=== PATIENT | female | born 1955 | race Asian ===

== ENCOUNTER 2018-07-17 09:52 | Emergency (ER) | payer OTHER ==
[~2018-07-17] VITALS: Ht 162.6 cm; Wt 68.0 kg
[2018-07-17 09:58] VITALS: BP 152/70
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
[2018-07-17] MEDS ORDERED: Gastrograffin 30ml ORAL PRN (10:15)
[2018-07-17] MEDS ORDERED: Morphine Sulfate 4mg/ml Inj (IV USE ONLY) IVP ONE ×2 (10:15→13:30)
--- NOTE | 2018-07-17 10:30 | NUR ---
ED Nurse Note: Collected blood specimen then sent.
--- NOTE | 2018-07-17 10:32 | NUR ---
ED Nurse Note: records technician at the bed side for series of xrays.
[2018-07-17 10:38] LABS: BASOPHILS % (AUTO) 0.8 % (0.0-2.0); EOSINOPHILS % (AUTO) 1.2 % (0.0-3.0); HEMATOCRIT 38.6 % (37.0-47.0); HEMOGLOBIN 12.9 G/DL (12.0-16.0); LYMPHOCYTES % (AUTO) 22.7 % (20.0-45.0); MEAN CORPUSCULAR VOLUME 88 FL (80-99); MONOCYTES % (AUTO) 4.9 % (1.0-10.0); NEUTROPHILS % (AUTO) 70.5 % (45.0-75.0); PLATELET COUNT 176 K/UL (150-450); RED BLOOD COUNT 4.37 M/UL (4.20-5.40); RED CELL DISTRIBUTION WIDTH 12.5 % (11.6-14.8); WHITE BLOOD COUNT 6.3 K/UL (4.8-10.8)
[2018-07-17 10:54] LABS: ANION GAP 11 mmol/L (5-15); BLOOD UREA NITROGEN 21 mg/dL (7-18); CALCIUM 9.6 MG/DL (8.5-10.1); CARBON DIOXIDE 24 MMOL/L (21-32); CHLORIDE 107 MMOL/L (98-107); CREATININE 0.6 MG/DL (0.55-1.30); INR 1.1 (0.9-1.1); POTASSIUM 3.6 MMOL/L (3.5-5.1); SODIUM 142 MMOL/L (136-145)
[2018-07-17 11:00] LABS: ALANINE AMINOTRANSFERASE 41 U/L (12-78); ALBUMIN 3.8 G/DL (3.4-5.0); ALBUMIN/GLOBULIN RATIO 1.1 (1.0-2.7); ALKALINE PHOSPHATASE 117 U/L (46-116); ASPARTATE AMINO TRANSFERASE 33 U/L (15-37); BILIRUBIN,TOTAL 0.7 MG/DL (0.2-1.0)
--- NOTE | 2018-07-17 11:09 | NUR ---
ED Nurse Note: Pt taken to CT via [facility]ardo. VSS.
--- NOTE | 2018-07-17 11:25 | NUR ---
ED Nurse Note: Patient came back from CT via gurney.
--- NOTE | 2018-07-17 11:42 | Diagnostic Imaging Report ---
Indication: Pain Knee pain/trauma 3 views of the right knee were obtained. Findings: No acute fracture, malalignment, or joint effusion are identified. Joint space is relatively well-maintained. Impression: Negative for acute findings.
--- NOTE | 2018-07-17 11:43 | Diagnostic Imaging Report ---
Indication: Left leg pain and trauma Comparison: None Findings: Two views of the left tibia and fibula were obtained. No acute fracture, malalignment, or periosteal reaction are identified. Soft tissues are unremarkable. Impression: No acute injury.
--- NOTE | 2018-07-17 11:44 | Diagnostic Imaging Report ---
Indication: Knee Pain 3 views of the left knee were obtained. Findings: No acute fracture, malalignment, or joint effusion are identified. Joint space is relatively well-maintained. Soft tissue swelling noted. Impression: Negative for acute injury
--- NOTE | 2018-07-17 11:47 | Diagnostic Imaging Report ---
Indication: right leg pain Comparison: None Findings: Two views of the right tibia and fibula were obtained. There is an acute fracture of the medial malleolus. The fracture is intra-articular and the seen on the frontal projection. There is also probable fracture of the lateral malleolus at the inferior most margin. IMPRESSION: Acute bimalleolar fracture
[2018-07-17 12:10] VITALS: BP 148/76
--- NOTE | 2018-07-17 12:15 | Diagnostic Imaging Report ---
Indication: Head trauma. Headache Technique: Contiguous 5 mm thick transaxial imaging of the head obtained in a Siemens Sensation [address] scanner. Soft tissue and bone windows generated. Automatic Exposure Control was utilized. Total Dose length Product (DLP): 1397.[address] Dose Index Volume (CTDIvol): 70.38 mGy Comparison: none Findings: There is mild prominence of the ventricles, basal cisterns, and cerebral sulci consistent with atrophy. Mild, nonspecific, white matter hypoattenuation is noted throughout the brain consistent with chronic small vessel disease. There is no midline shift, edema, acute hemorrhage, mass effect, or abnormal extra-axial fluid collections. Bones and extra osseous soft tissues are unremarkable. Impression: No acute intracranial bleed, mass effect or edema. Mild atrophy of the brain. Nonspecific white matter hypoattenuation probably due to chronic small vessel disease. The CT scanner at [facility] is accredited by the [employer] and the scans are performed using dose optimization techniques as appropriate to a performed exam including Automatic Exposure control.
--- NOTE | 2018-07-17 12:29 | Diagnostic Imaging Report ---
Indication: Neck pain. Technique: Continuous helical imaging of the cervical spine was obtained transaxially from the skull base to the upper thoracic spine. 2-D coronal and sagittal reformatted images were obtained. Automatic Exposure Control was utilized. Total Dose length Product (DLP): 264.[address] Dose Index Volume (CTDIvol): 12 mGy Comparison: None Findings: The left transverse process of C6 is fractured. The anterior aspect of the foramen transversarium shows a transverse lucency probably best demonstrated on transaxial images (). There is also linear lucency along the posterior aspect of the left T6 foramen transversarium at this level. The lateral mass, lamina and vertebral body appear normal at this level. No other fractures are identified. There is no malalignment. Intervertebral disc heights and vertebral body heights are normal. There is no soft tissue swelling appreciated. IMPRESSION: Evidence of an acute nondisplaced fracture of the left transverse process of C6 involving both the anterior and posterior aspects of foramen transversarium. Given the proximity of the left vertebral artery which courses through foramen transversarium, injury to this vessel is not excluded. Critical value communication. Findings were discussed via telephone with Dr. Luz in the emergency department 12:20 PM, 07/17/2018. The CT scanner at [facility] is accredited by the [employer] and the scans are performed using dose optimization techniques as appropriate to a performed exam including Automatic Exposure control.
[2018-07-17] MEDS ORDERED: ceFAZolin 1gm/50ml Premix 50 ML IV ONE (12:30)
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
--- NOTE | 2018-07-17 12:40 | NUR ---
ED Nurse Note: Cleaned pt's laceration on right foot and left knee with saline patted dry. Applied wet-dry dressing and secured with tape.
--- NOTE | 2018-07-17 12:43 | NUR ---
CLINICALS FAXED TO [facility] . WILL CALL BACK WITH TRAUMA MD
--- NOTE | 2018-07-17 13:28 | NUR ---
[facility] . WILL CALL BACK SOON THE MD CALL BACK
--- NOTE | 2018-07-17 14:10 | NUR ---
ED Nurse Note: Report given to Arminda GARCIA of [facility].
--- NOTE | 2018-07-17 14:25 | NUR ---
ED Nurse Note: Report given to JOSE Castle with [facility]; patient remained awake, alert, orietned x 4. Able to follow commands. Hard cervical collar in place. Patient able to squeeze bilateral hands, equal hand tube drawing supervisor noted. Patient able to wiggle bilateral toes with cap refill < 3 sec. Splint to RLE noted. Patient c/o nausea and Zofran 4mg given. Patient c/o pain, but tolerable at this time without further medication.
[2018-07-17 14:52] VITALS: BP 115/56
--- NOTE | 2018-07-17 14:52 | NUR ---
ED Nurse Note: [facility] and all belongings sent with her. Pt is stable for transfer. VSS.
== END 2018-07-17 14:52 | disposition short-term general hospital (02) ==
LOC: EDBD 09:52 → EMR 10:29
DX: S12.501A Unspecified nondisplaced fracture of sixth cervical vertebra, initial encounter for closed fracture (principal); S82.841A Displaced bimalleolar fracture of right lower leg, initial encounter for closed fracture; V43.52XA Car driver injured in collision with other type car in traffic accident, initial encounter; Y92.410 Unspecified street and highway as the place of occurrence of the external cause
CPT/HCPCS: 36415; 70450; 71250; 72125; 73562; 73590; 74176; 80053; 85025; 85610; 85730; 86850; 86900; 86901; 93005; 96361; 96365; 96375; 96376; 99285; J0690; J2270; J2405